=== PATIENT | female | born 1975 | race African-American/Black ===

== ENCOUNTER 2017-06-15 04:42 | Emergency (ER) | payer OTHER ==
[~2017-06-15] VITALS: Ht 162.6 cm; Wt 49.9 kg
--- NOTE | ~2017-06-15 | CR72 ---
[facility] A Service of [facility] & [facility] RADIOLOGY TEXT RESULTS PATIENT: MALATHI WASHINGTON V LOCATION: [facility] : 73 UNIT #: [id number] AGE: [address]: Jose Hamilton MD SEX: F ORDER DR: [id number] [facility] [address] [place], [place] [address] [id number] E MR#: [id number] Acc #: [id number] NAME: MALATHI WASHINGTON : 1975 SEX: F STUDY DATE/TIME: 06/15/2017 5:25 UNIT: [facility] ROOM: STUDY DESCRIPTION: CR Chest Single View Portable Attending Physician: Jose Hamilton M.D. Ordering Physician: Don Ashraf M.D. Primary Care Physician: Rosario Browne MEDICAL IMAGING REPORT This report is preliminary unless electronic signature is present EXAM Portable chest INDICATION Shortness of air this morning. PROCEDURE Frontal view of the chest. COMPARISON 02/19/2016. FINDINGS Heart size within normal limits. No dense consolidation. No pleural fluid or pneumothorax. IMPRESSION No active process. Dictated by... Michael Pena M.D. THIS IS AN ELECTRONICALLY VERIFIED REPORT Michael Pena M.D. at 06/15/2017 10:01 PM LAURY/henry TD: 06/15/2017 08:53 JOB #: [id number] MEDICAL IMAGING REPORT Page 1 of 1 COPY
--- NOTE | ~2017-06-15 | EKG ---
PATIENT: MALATHI WASHINGTON UNIT #: [id number] Ventricular Rate: 78 BPM Atrial Rate: 78 BPM P-R Interval: 158 ms QRS Duration: 84 ms Q-T Interval: 368 ms QTC Calculation(Bezet): 419 ms P [place]: 72 degrees Calculated R [place]: 45 degrees Calculated T [place]: 54 degrees Diagnosis Line: Normal sinus rhythm with sinus arrhythmia Diagnosis Line: Normal ECG Diagnosis Line: No previous ECGs available Diagnosis Line: Confirmed by XANDER SMITH MD ([id number]) on 06/15/2017 Diagnosis Line: 2:04:29 PM INTERPRETING MD: SARAH BOCANEGRA
[~2017-06-15 04:42] MED LIST: ALBUTEROL17 GM INH; AMOXICILLIN PO; AMOXICILLIN500 M1 PO; FIORICET1 TAB PO; IBUPROFEN800 MG PO; ILOTYCIN OPTH; LORTAB 5/500 TA1 TA1 PO; POLYSACC IRON150 MG PO
[2017-06-15 05:27] LABS: URINE SOURCE CLEAN CATCH
[2017-06-15 05:40] LABS: URINE APPEARANCE CLEAR; URINE BILIRUBIN NEG (NEG); URINE BLOOD TRACE (NEG); URINE COLOR YELLOW; URINE GLUCOSE NEG (NEG); URINE KETONE NEG (NEG); URINE LEUKOCYTE ESTERASE TRACE (NEG); URINE NITRATE NEG (NEG); URINE PROTEIN NEG (NEG); URINE SPECIFIC GRAVITY 1.009 (1.003-1.035); URINE UROBILINOGEN 0.2 MG/DL (NEG)
[2017-06-15 05:42] LABS: URINE BACTERIA AUWI NEG (NEGATIVE); URINE SQUAMOUS EPITHELIAL CELL NONE SEEN /[HPF]; UWBCS1 AUWI 0-2 (0-5)
[2017-06-15 05:44] LABS: BASOPHIL% 0.6 % (0-2.5); EOSINOPHIL# 0.3 X10e3 (0-0.7); EOSINOPHIL% 3.4 % (0.0-7.0); HEMATOCRIT 41.3 % (35.0-45.0); HEMOGLOBIN 13.7 gm/dL (12.0-16.0); LYMPHOCYTE# 2.1 X10e3 (1.0-3.5); MEAN CELL VOLUME 79.5 FL (83-96); MEAN CORPUSCULAR HEMOGLOBIN 26.3 PG (28-34); MEAN CORPUSCULAR HGB CONC 33.1 g/dL (30-36); MEAN PLATELET VOLUME 7.5 FL (6.5-11.5); MONOCYTE# 0.5 X10e3 (0-1.0); MONOCYTE% 6.5 % (3.0-12.0); NEUTROPHIL# 4.9 X10e3 (1.5-7.1); NEUTROPHIL% 62.5 % (40-75); PLATELET COUNT 286 X10e3 (140-420); RED CELL DISTRIBUTION WIDTH 14.8 % (11.0-15.5); WHITE BLOOD COUNT 7.9 X10e3 (4.0-10.5)
[2017-06-15 05:46] LABS: DIFF IND NO
[2017-06-15 05:57] LABS: CULTURE INDICATED? NO
[2017-06-15 06:01] LABS: POC - CKMB <1.0 ng/mL (0.0-7.9); POC - TROPONIN <0.05 ng/mL (<=0.05)
[2017-06-15 06:18] LABS: ALKALINE PHOSPHATASE 40 U/L (32-92); ALT (SGPT) 11 U/L (10-40); AST (SGOT) 20 U/L (10-42); BILIRUBIN, DIRECT 0.1 mg/dL (0.0-0.2); BLOOD UREA NITROGEN 10 mg/dL (9-23); CALCIUM SERUM 9.1 mg/dL (8.4-10.2); CARBON DIOXIDE 24 mmol/L (22-31); CHLORIDE 103 mmol/L (100-111); CREATININE SERUM 0.8 mg/dL (0.6-1.4); GLOM FILT RATE Estimated 105.5 mL/min (>60); GLUCOSE FASTING 99 mg/dL (70-110); POTASSIUM 3.8 mmol/L (3.5-5.1); PROTEIN TOTAL SERUM 7.5 g/dL (6.0-8.3); SODIUM 139 mmol/L (135-145)
[2017-06-15 06:19] LABS: BILIRUBIN,TOTAL <0.1 mg/dL (0.2-2.0)
== END 2017-06-15 06:30 | disposition home or self-care (01) ==
LOC: CED 04:42
PROVIDERS: Emergency Medicine
DX: R06.02 Shortness of breath (principal); I10 Essential (primary) hypertension; Z79.899 Other long term (current) drug therapy
CPT/HCPCS: 36415; 71010; 80048; 80076; 81003; 82553; 84484; 85025; 93005; 99285